=== PATIENT | male | born 1975 | race Two or more races ===

== ENCOUNTER 2018-02-06 03:35 | Emergency (ER) | payer MEDICAID ==
[~2018-02-06] VITALS: Ht 177.8 cm; Wt 90.7 kg
[2018-02-06] MEDS ORDERED: IBUP-1955 PO (03:44)
[2018-02-06] MEDS ORDERED: DIAZ10TA PO (03:44)
--- NOTE | 2018-02-06 03:52 | NUR ---
Pt ambulates to ER with c/o intermittent right lower abdominal pain x 2 years. Pt states he took Valium yesterday around noon, went to sleep, and woke up a couple hrs later with fever + chills. Pt temperature upon arrival was 98.3 F. Pt AAOX4. Pt denies chest pain. Pt denies SOB/cough/congestion. Pt denies difficulty urinating. Pt denies N/V. VSS. No acute distress noted.
--- NOTE | 2018-02-06 04:00 | NUR ---
ANTHONY GILLIS AT BEDSIDE FOR MSE.
[2018-02-06 04:22] LABS: *BILIRUBIN,URIN NEGATIVE (NEGATIVE); *BLOOD, URINE NEGATIVE (NEGATIVE); *CLARITY,URINE CLEAR (CLEAR); *COLOR,URINE YELLOW (YELLOW); *KETONES,URINE NEGATIVE (NEGATIVE); *PROTEIN,URINE NEGATIVE (NEGATIVE); *UROBILINOGEN,URINE 0.2 E.U./dl (NORMAL); LEUKOCYTE ESTERASE ,URINE NEGATIVE (NEGATIVE); NITRITE, URINE NEGATIVE (NEGATIVE); PH,URINE 5.5 (5.0-8.0); UGLUCOSE NEGATIVE (NEGATIVE)
[2018-02-06] MEDS ORDERED: KETOROLAC TROMETHAMINE 30 MG INJ ONE (04:24)
[2018-02-06] MEDS ORDERED: ONDANSETRON 4 MG/2 ML VIAL ONE (04:24)
[2018-02-06 04:27] LABS: BASOPHILS % (AUTO) 0.3 % (0.0-2.0); EOSINOPHILS # (AUTO) 0.1 K/uL (0.0-0.7); EOSINOPHILS % (AUTO) 2.8 % (0.0-7.0); HEMATOCRIT 43.8 % (36.7-47.1); HEMOGLOBIN 15.5 g/dL (12.5-16.3); LYMPHOCYTES # (AUTO) 2.6 K/uL (20.0-40.0); LYMPHOCYTES % (AUTO) 58.3 % (20.5-51.5); MEAN CORPUSCULAR HEMOGLOBIN 30.2 uug (23.8-33.4); MEAN CORPUSCULAR HGB CONC 35 g/dL (32.5-36.3); MEAN CORPUSCULAR VOLUME 85.5 fL (73.0-96.2); MONOCYTES # (AUTO) 0.4 K/uL (2.0-10.0); MONOCYTES % (AUTO) 8.2 % (0.0-11.0); NEUTROPHILS # (AUTO) 1.4 K/uL (1.8-8.9); NEUTROPHILS % (AUTO) 30.4 % (38.5-71.5); PLATELET COUNT (AUTO) 251 K/uL (152-348); RED BLOOD CELL COUNT(AUTO) 5.12 MIL/uL (4.06-5.63); WHITE BLOOD COUNT (AUTO) 4.5 K/uL (3.6-10.2)
[2018-02-06] MEDS: IV NORMAL SALINE 1000 ML BAG IV ONE (04:27)
[2018-02-06] MEDS: KETOROLAC TROMETHAMINE 15 MG INJ IV ONE (04:28)
[2018-02-06] MEDS: ONDANSETRON 4 MG/2 ML VIAL IV ONE (04:28)
[2018-02-06 04:34] LABS: BACTERIA,URINE NONE SEEN /HPF (NONE SEEN); RBC,URINE 0-3 /HPF (0-3); SQUAMOUS EPITHELIAL CELL,UR NONE SEEN /HPF (NONE SEEN); WBC,URINE 0-3 /HPF (0-3)
[2018-02-06 04:47] LABS: CREATININE 1.1 mg/dL (0.6-1.3); POTASSIUM 3.8 mmol/L (3.5-5.1)
[2018-02-06 04:53] LABS: BILIRUBIN,DIRECT 0.1 mg/dL (0.0-0.2); BILIRUBIN,TOTAL 0.5 mg/dL (0.2-1.0); TOTAL PROTEIN, SERUM 7.1 g/dL (6.4-8.2)
[2018-02-06 06:41] VITALS: BP 118/70
== END 2018-02-06 06:32 | disposition home or self-care (01) ==
LOC: ER 03:42
DX: N50.811 Right testicular pain (principal)
CPT/HCPCS: 36415; 76870; 83690; 85025; A4663; J1885; J2405; J7030